=== PATIENT | male | born 1995 | race Caucasian/White ===

== ENCOUNTER 2016-10-20 18:32 | Emergency (ER) | payer OTHER | END 2016-10-20 21:05 | disposition home or self-care (01) | LOC: ER1 18:32 | DX: K02.9 Dental caries, unspecified (principal); F17.210 Nicotine dependence, cigarettes, uncomplicated | CPT/HCPCS: 96372; 99282; J1885 ==

== ENCOUNTER 2016-10-22 21:42 | Emergency (ER) | payer OTHER | END 2016-10-23 01:50 | disposition left against medical advice (07) | LOC: ER1 21:42 | DX: Z53.21 Procedure and treatment not carried out due to patient leaving prior to being seen by health care provider (principal) ==